=== PATIENT | male | born 1950 | race Caucasian/White ===

== ENCOUNTER 2017-06-16 14:14 | Emergency (ER) | payer MEDICARE, OTHER ==
[2017-06-16] MEDS ORDERED: Tetan/Diph/Pertus SYR(Tdap)* 0.5 ML SYR(BOOSTRIX) use SYR IM ONE (14:25)
[2017-06-16 14:26] VITALS: BP 135/76
--- NOTE | 2017-06-16 15:09 | UC ---
Laceration HPI - HPI Summary HPI Summary: Patient presents with laceration to the left distal ring finger, he cut it with the hedge clippers. He reports bleeding. last tetanus eight years ago. He reports tingling to the end of the finger, and slight tingling. Denies any difficulty with movemenet. - History Of Current Complaint Hx Obtained From: Patient Laceration Location: Finger Mechanism Of Injury: Sharp Trauma Onset/Duration: Lasting Hours Severity: Mild <Sylvia Duong - Last Filed: 06/16/17 16:20> <Yohana Bruner - Last Filed: 06/16/17 17:45> - History Of Current Complaint Chief Complaint: UCLaceration Stated Complaint: FINGER LACERATION Time Seen by Provider: 06/16/17 14:59 - Allergies/Home Medications Allergies/Adverse Reactions: Allergies Allergy/AdvReac Type Severity Reaction Status Date / Time No Known Allergies Allergy Verified 06/16/17 14:26 PMH/Surg Hx/FS Hx/Imm Hx Previously Healthy: Yes Cardiovascular History: Hypertension - Surgical History Surgical History: Yes Surgery Procedure, Year, and Place: bladder - Family History Known Family History: Positive: Hypertension - Social History Occupation: Retired Lives: Alone Alcohol Use: None Substance Use Type: None Smoking Status (MU): Current Some Day Smoker Type: Cigars <Sylvia Duong - Last Filed: 06/16/17 16:20> Review of Systems Constitutional: Negative Skin: Other - avulsion laceration of left ring finger. ENT: Negative Respiratory: Negative Cardiovascular: Negative Gastrointestinal: Negative Genitourinary: Negative Motor: Negative Neurovascular: Negative Musculoskeletal: Negative All Other Systems Reviewed And Are Negative: Yes <Sylvia Duong - Last Filed: 06/16/17 16:20> Physical Exam Triage Information Reviewed: Yes Appearance: Well-Appearing Vital Signs: Initial Vital Signs Temp 97.9 F 06/16/17 14:23 Pulse 60 06/16/17 14:23 Resp 18 06/16/17 14:23 BP 135/76 06/16/17 14:23 Pulse Ox 99 06/16/17 14:23 Vital Signs Reviewed: Yes Eye Exam: Normal ENT Exam: Normal Respiratory Exam: Normal Skin: Positive: Other - left ring finger avulsion laceration distal tip. <Sylvia Duong - Last Filed: 06/16/17 16:20> Vital Signs: Initial Vital Signs Temp 97.9 F 06/16/17 14:23 Pulse 60 06/16/17 14:23 Resp 18 06/16/17 14:23 BP 135/76 06/16/17 14:23 Pulse Ox 99 06/16/17 14:23 <Yohana Bruner - Last Filed: 06/16/17 17:45> Laceration Course/Dx - Course/Dx Course Of Treatment: Patient presents with an avulsion laceration to the left distal ring finger. Xrays were obtained and i read as distal phalynx fracture. Tetanus was updated. Augmentin rx. Bleeding controlled. Gelfoam dressing was applied, and wound care instruction were given. Patient was discharged home in stable condition.Patient was referred to orthopedist for follow up. - Differential Dx - Laceration/Wound Differental Diagnoses: Other - avulsion laceration Provider Diagnoses: avulsion laceration. tetanus vaccine <Sylvia Duong - Last Filed: 06/16/17 16:20> Discharge <Sylvia Duong - Last Filed: 06/16/17 16:20> <Yohana Bruner - Last Filed: 06/16/17 17:45> - Discharge Plan Condition: Stable Disposition: HOME Prescriptions: Amoxicillin/Clavulanate TAB* [Augmentin TAB 500 mg*] 500 mg PO BID #20 tab Patient Education Materials: Diphtheria/Tetanus Vaccine (By injection), Finger Fracture (ED), Finger Laceration (ED), Avulsion Fracture (ED) Referrals: Angelito Zamora MD [Primary Care Provider] - Martin Wells MD [Medical Doctor] - Images Hands: 1 - skin avulsion <Sylvia Duong - Last Filed: 06/16/17 16:20> Attestation Statement User Type: Provider - I was available for consult. This patient was seen by the ZOE. The patient was not presented to, seen by, or examined by me. -Ljj <Yohana Bruner - Last Filed: 06/16/17 17:45>
[2017-06-16] MEDS ORDERED: Lidocaine 1% INJ* 10 MG/ML 30 ML SDV INJ ONE ×4 (15:17→15:24)
[2017-06-16] MEDS ORDERED: Lidocaine 1% MPF* 2 ML VIAL ONE (15:22)
--- NOTE | 2017-06-16 16:13 | RAD ---
INDICATION: Laceration with hedge clippers, left ring finger. TECHNIQUE: 3 views of the left ring finger were obtained. FINDINGS: There is diffuse soft tissue swelling and a soft tissue defect involving the tip of the finger distal to the tuft of the distal phalanx. No fracture is seen. Joint spaces appear maintained. IMPRESSION: SOFT TISSUE INJURY, NO FRACTURE IS SEEN.
== END 2017-06-16 16:34 | disposition home or self-care (01) ==
LOC: UCEAST 14:14
DX: S61.215A Laceration without foreign body of left ring finger without damage to nail, initial encounter (principal); W45.8XXA Other foreign body or object entering through skin, initial encounter; I10 Essential (primary) hypertension; F17.210 Nicotine dependence, cigarettes, uncomplicated; Z23 Encounter for immunization
CPT/HCPCS: 12001; 73140; 90471; 90715; 96372; 99212; G0463; J2001

== ENCOUNTER 2019-06-23 06:58 | Observation (INO) | payer MEDICARE, OTHER ==
--- NOTE | 2019-06-13 13:02 | HP ---
HISTORY AND PHYSICAL: DATE OF SURGERY: 06/23/19 DATE OF OFFICE VISIT: 06/10/19 SURGEON: Dr. Ella Marc.* (DICTATED BY DASHA THAPA) PROCEDURE: Right total knee arthroplasty. CHIEF COMPLAINT: Right knee pain. HISTORY OF PRESENT ILLNESS: Mr. Villalobos is a 69-year-old male with 10 years of increasing severe right knee pain. He had an arthroscopy in 2009. Over the last 2 years, he has had 6/10 pain along the medial and lateral joint line of the knee. He has increased pain and can no longer take part in certain activities like skiing because of the pain. He has had increased pain with exercise and prolonged ambulation. In the past, he has tried injections, antiinflammatories, and activity modifications with minimal relief in pain. At this point, he has had failed conservative treatment and is a candidate for a right total knee arthroplasty. PAST MEDICAL HISTORY: Arthritis, previous alcohol addiction, enlarged prostate. PAST SURGICAL HISTORY: Right knee arthroscopy in 2009, tonsillectomy. MEDICATIONS: 1. Centrum 1 p.o. daily. 2. Fish oil 1 p.o. daily. 3. EpiPen 2 packs 0.3 mg/0.3 mL subcu p.r.n. ALLERGIES: No known drug allergies. BEE STINGS. FAMILY HISTORY: Positive for hypertension, stroke, and colon cancer. SOCIAL HISTORY: He is a retired executive. He currently smokes 3 to 4 cigars per week. He previously smoked cigarettes. He smoked 1-1/2 packs per day x20 years, he quit at age 40. He is a recovering alcoholic. He has not had an alcoholic beverage since 1975. He denies any recreational drug use. He is right-hand dominant. REVIEW OF SYSTEMS: General: Negative for fevers, chills, night sweats, unexplained weight loss or gain. No known anesthesia problems. HEENT: Negative for headache, lightheadedness, syncopal episodes, or visual changes. Integumentary: Negative for abrasions, lesions, or open wounds. Cardiothoracic : Negative for hypertension, chest pain, palpitations, or edema. Respiratory: Negative for shortness of breath with exertion, chronic cough, or wheezing. GI : Negative for nausea, vomiting, diarrhea, constipation, or GERD symptoms. : Positive for enlarged prostate. Negative for nocturia, urinary frequency, urgency, history of UTIs, or kidney problems. Musculoskeletal: Positive for right knee pain. Negative for chronic or intermittent back pain. No history of fractures. Neurologic: Negative for paresthesias, numbness, history of seizures, stroke, or poor balance. Negative for anxiety or depression. Endocrine: Negative for diabetes or thyroid issues. Hematologic: Negative for easy bruising, anemia, or bleeding disorders, history of DVT or PE. ID: Negative for history of MRSA infection, hep C, or HIV. PHYSICAL EXAMINATION GENERAL: Well-developed, well-nourished 69-year-old male, in no acute distress. Appropriate mood and affect. Appropriate dress and hygiene. VITAL SIGNS: Height 71 inches, weight 187 pounds, pulse 57, blood pressure 118/ 62, respirations 16, temperature 96.7, BMI 26.1. HEENT: Normocephalic and atraumatic. PERRLA. Extraocular movements intact. Throat is clear. NECK: Supple. No palpable lymph nodes. PULMONARY: Lungs are clear to auscultation bilaterally. No wheezes, rales, or rhonchi. CARDIO: Regular rate and rhythm. S1 and S2 normal. No murmurs, rubs, or gallops. No edema. ABDOMEN: Positive bowel sounds. Soft and nontender. NEUROLOGIC: A and O x3. Cranial nerves II through XII intact. Sensation is intact to light touch. MUSCULOSKELETAL: Right lower extremity skin is intact. No abrasions or open wounds. No soft tissue swelling, erythema, or bruising. There is no palpable masses or lymph nodes. He does have 12 degrees valgus deformity at the knee with a moderate effusion. Range of motion is 15 to 120 degrees of flexion at the knee with patellofemoral crepitus and pain. Distally, no edema or varicosity. No varus or valgus instability at the joint. He is able to dorsiflex and plantarflex his ankles. 5/5 strength. Sensation is intact to light touch in all nerve distributions. DP pulse 2+. DIAGNOSTIC STUDIES: Radiograph of his right knee show moderate to severe arthritis of the right knee with a valgus knee that has nearly [id number] contact in the lateral compartment. The lateral view also shows significant patellofemoral arthritis. IMPRESSION: Right knee arthritis. PLAN/RECOMMENDATIONS: The patient is scheduled to undergo a right total knee arthroplasty on 06/23/[address] Marc discussed the procedure as well as the risks and benefits with the patient; he elects to proceed. He will return to the office in 10 to 14 days for postop followup and suture removal. Prescription for Percocet will be prescribed for postoperative pain management upon discharge from the hospital. DASHA THAPA [id number]/[facility] #: [id number] PAIGE
[~2019-06-23 06:58] MED LIST: Buffered Lidocaine 1% SYRIN* 1 ML/SYRINGE INTRADERM ONE; Famotidine IV* 10 MG/ML 2 ML (20 mg) IV ONE; Lactated Ringers 1000 ML Bag* 1,000 ML IV SCH; Tranexamic Acid 1,000 MG in NS 0.9% 50 ML* (outpatient use) IV SCH
--- OUTSIDE RECORDS SUMMARY | 2019-06-23 07:02 | XMS REPORT | Continuity of Care Document ---
:1950 External Reference #:[id number] Author Name Ella Marc M.D. 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 Onset: 12/01/2013 Dyspnea Nacho Ho M.D. Onset: 12/01/2013 Palpitations Nacho Ho M.D. Onset: 12/01/2013 Electrocardiogram abnormal Nacho Ho M.D. Onset: 01/10/2014 Localized, primary osteoarthritis Ella Marc M.D. Onset: 11/26/2018 Supraventricular premature beats Nacho Ho M.D. Onset: 2013 Premature beats Nacho Ho M.D. Onset: 01/17/2014 Social History Type Date Description Comments Sex Unknown ETOH Use Has consumed alcohol in quite 30 years ago the past Tobacco Use Start: Unknown Patient is a current cigars couple times smoker, smokes some a week. days Recreational Drug Use Denies Drug Use Smoking Status Reviewed: 06/10/19 Patient is a current cigars couple times smoker, smokes some a week. days Exercise Type/Frequency Exercises regularly Allergies, Adverse Reactions, Alerts Active Allergies Reaction Severity Comments Date NKDA 11/30/2013 Bee Sting 11/30/2013 Medications Active Medications SIG Qnty Indications Ordering Provider Date Epipen 2-Ilia sc prn 2units Unknown 0.3mg/0.3ML Device Centrum 1 po qd 90tabs Unknown Tablets Fish Oil Unknown Medications Administered in Office Medication SIG Qnty Indications Ordering Provider Date Depomedrol 40MG Ella Marc M.D. 11/26/2018 Injection Immunizations Description No Information Available Vital Signs Date Vital Result Comment 06/10/2019 9:38am Height 71 inches 5'11" Weight 187.00 lb Heart Rate 57 /min BP Systolic 118 mmHg BP Diastolic 62 mmHg Respiratory Rate 16 /min Body Temperature 96.7 F Pain Level 0 BMI (Body Mass Index) 26.1 kg/m2 03/07/2019 1:57pm Height 71 inches 5'11" Weight 185.00 lb Heart Rate 59 /min Body Temperature 96.7 F O2 % BldC Oximetry 97 % BMI (Body Mass Index) 25.8 kg/m2 Results Description No Information Available Procedures Description No Information Available Medical Devices Description No Information Available Encounters Type Date Location Provider Dx Diagnosis Office Visit 03/07/2019 Orthopedic Ella Marc, M25.561 Pain in right 1:[facility] knee M25.461 Effusion, right knee M17.11 Unilateral primary osteoarthritis, right knee M21.061 Valgus deformity, not elsewhere classified, right knee Assessments Date Code Description Provider 06/10/2019 M17.11 Unilateral primary osteoarthritis, right knee Ella Marc M.D. 06/10/2019 M25.561 Pain in right knee Ella Marc M.D. 03/10/2019 M25.561 Pain in right knee Ella Marc M.D. 03/10/2019 M25.461 Effusion, right knee Ella Marc M.D. 03/10/2019 M17.11 Unilateral primary osteoarthritis, right knee Ella Marc M.D. 03/10/2019 M21.061 Valgus deformity, not elsewhere classified, Ella Marc M.D. right knee 03/07/2019 M25.561 Pain in right knee Ella Marc M.D. 03/07/2019 M25.461 Effusion, right knee Ella Marc M.D. 03/07/2019 M17.11 Unilateral primary osteoarthritis, right knee Ella Marc M.D. 03/07/2019 M21.061 Valgus deformity, not elsewhere classified, Ella Marc M.D. right knee Plan of Treatment Future Appointment(s):06/23/2019 10:15 am - [facility] - Ella Marc M.D.M17.11 Unilateral primary osteoarthritis, right kneeFollow up:10-14 days post-opM25.561 Pain in right kneeNew Xrays:Knee 3 Views RT, Ordered: 06/10/19 Functional Status Description No Information Available Mental Status Description No Information Available Referrals Description No Information Available
[2019-06-23] MEDS ORDERED: Famotidine IV* 10 MG/ML 2 ML (20 mg) ONE (07:52)
[2019-06-23] MEDS ORDERED: ceFAZolin 2 GM in NS PREMIX(*) 2 GM/100 ML BAG IVPB ONE (07:52)
[2019-06-23] MEDS ORDERED: fentaNYL* 50 MCG/ML 2 ML VIAL (100 MCG VIAL) ONE (08:08)
[2019-06-23] MEDS ORDERED: Midazolam* 1 MG/ML 5 ML VIAL (5 MG) ONE (08:08)
[2019-06-23] MEDS ORDERED: Buffered Lidocaine 1% SYRIN* 1 ML/SYRINGE INTRADERM ONE (08:23)
[2019-06-23] MEDS ORDERED: Lidocaine 1% MPF ** 5 ML VIAL ONE (08:38)
[2019-06-23] MEDS ORDERED: ROPIVACAINE 5 MG/ML 30 ML BTL (0.5%) ONE ×2 (08:38→09:32)
[2019-06-23] MEDS ORDERED: Bupivacaine 0.5%* 50 ML MDV VIAL ONE (09:11)
[2019-06-23] MEDS ORDERED: Bupivacaine 0.25% SDV PF* 10 ML VIAL INJ ONE (09:13)
[2019-06-23] MEDS ORDERED: KETAMINE HCL* 50 MG/ML 10 ML VIAL ONE (10:14)
[2019-06-23] MEDS ORDERED: Ketorolac INJ* 30 MG/ML 1 ML VIAL ONE (10:17)
[2019-06-23] MEDS ORDERED: Lidocaine 2% PF * 5 ML VIAL ONE (10:17)
[2019-06-23] MEDS ORDERED: Ondansetron INJ* 2 MG/ML VIAL ONE (10:17)
[2019-06-23] MEDS ORDERED: Propofol* 10 MG/ML 20 ML BTL ONE (10:17)
[2019-06-23] MEDS ORDERED: Glycopyrrolate IV* 0.2 MG/ML 1 ML VIAL ONE (10:17)
[2019-06-23] MEDS ORDERED: HYDROmorphone INJ1* 1 MG/ML SYRINGE IV PRN (10:48)
[2019-06-23] MEDS ORDERED: Acetaminophen IV 1GM/100ML * 1,000 MG/100 ML VIAL IVPB ONE (10:48)
[2019-06-23] MEDS ORDERED: oxyCODONE TAB* 5 MG TAB PO PRN (10:48)
[2019-06-23] MEDS ORDERED: DiMENhydriNATE IV* 50 MG/ML VIAL IV PUSH PRN (10:48)
[2019-06-23] MEDS ORDERED: Naloxone* 0.4 MG/ML 1 ML VIAL IV PRN (10:48)
[2019-06-23] MEDS ORDERED: Acetaminophen TAB* 325 MG PO PRN (12:35)
[2019-06-23] MEDS ORDERED: Ondansetron INJ* 2 MG/ML VIAL IV PRN (12:35)
[2019-06-23] MEDS ORDERED: Morphine INJ* 10 MG/ML 1 ML CARPUJECT IV PRN (12:35)
[2019-06-23] MEDS ORDERED: diPHENhydraMINE IV* 50 MG/ML 1 ml VIAL (BENADRYL) IV PRN (12:35)
[2019-06-23] MEDS ORDERED: diPHENhydraMINE PO* 25 MG PO PRN (12:35)
[2019-06-23] MEDS ORDERED: oxyCODONE/Acetamin 5/325 MG* TAB PO PRN (12:35)
[2019-06-23] MEDS ORDERED: Magnesium Hydroxide LIQ* 30 ML UDC PO PRN (12:35)
[2019-06-23] MEDS ORDERED: Ondansetron ODT TAB* 4 MG PO PRN (12:35)
[2019-06-23] MEDS: Lactated Ringers 1000 ML Bag* 1,000 ML IV SCH (13:45)
--- NOTE | 2019-06-23 16:22 | OP ---
Operative Report - Blank - Operative Report Date of Operation: 06/23/19 Note: GALEN STATON 1950 Date of Surgery: 06/23/19 Ella Marc MD Mexican Food Maker: Hermelinda LOU did help throughout the procedure with preparation of the knee, wound retraction, manipulation of the knee, and wound closure. Anesthesiologist: Pete Souza MD Anesthesia Type: Spinal Preoperative Diagnosis: Right severe degenerative osteoarthritis of the knee Postoperative Diagnosis: As above Procedure Performed: Right Total Knee Arthroplasty Tourniquet time: 48 minutes Complications: None Specimen: Bone and cartilage from the right knee joint sent to pathology. Hardware Used: Cemented Lynne [employer]hew total knee hardware was used - For the femur a size 7 right oxinium legion posterior stabilized femoral component, for the tibia a size 6 right simran II tibial baseplate, for the insert a size 9 mm 5-6 posterior stabilized articular polyethylene insert, and for the patella a size 35 3-peg all poly patella. Brief History/Indication: GALEN STATON was known in clinic and had a history of severe right knee pain and swelling. He failed conservative treatment with anti-inflammatories, pain pills, intra-articular injections and physical therapy. He elected to undergo right total knee arthroplasty due to continued pain and decreased quality of life. Radiographs showed severe end stage osteoarthritis of the knee with bone on bone contact. Informed consent was obtained from the patient. He understood the risks of surgery included but were not limited to: bleeding, infection, damage to nearby structures, intraoperative fracture, nerve palsy, failure of the hardware, early loosening, knee stiffness or loss of motion, anesthesia complications, stroke, heart attack , blood clot and . He wished to proceed. Intra-Operative Findings: Intraoperatively the patient was noted to have severe loss of cartilage in all 3 compartments of the knee. Description of the Procedure: GALEN STATON was identified in the preanesthesia unit. His right knee was marked as the correct operative side. Informed consent was signed and placed in the chart. The patient was taken to the operating room and placed under anesthesia without complication. A lozano catheter was placed. A tourniquet was placed on the right thigh. The right lower extremity was prepped and draped in the usual sterile fashion. Preoperative time-out was made to correctly identify the patient, side and site. Appropriate intraoperative antibiotics were given within one hour of incision. Tourniquet was inflated. A midline incision was made and carried sharply down to the extensor mechanism. A new 10 blade was used to make a standard medial parapatellar arthrotomy. The patella was subluxed laterally. Electrocautery was used to dissect soft tissue off the superomedial tibia to the midsagittal plane. The knee was flexed up. The anterior horn of the lateral meniscus and the ACL were sharply incised. A drill was used to enter the distal femur. The intramedullary distal femoral cutting guide was pinned on the distal femur. The oscillating saw was used to make the distal femoral cut. The external rotation guide was pinned on the distal femur and the distal femur was sized to a size 7. The size 7 multi-cutting jig was pinned on the distal femur. The oscillating saw was used to make the appropriate 4 chamfer cuts. Next the PCL was completely released. The extramedullary tibial cutting guide was pinned on the proximal tibia and the oscillating saw was used to make the proximal tibial cut perpendicular to the mechanical axis of the tibia. The bone was carefully removed. The knee was brought out into full extension. The spacer block was placed and had excellent fit with the knee in full extension. The medial and lateral ligaments were well balanced. The flexion and extension gaps were well balanced. The knee was flexed up. Lamina school manager was placed both medially and laterally. Any remaining meniscus was removed with electrocautery. Curved osteotome was used to remove any posterior osteophytes. The tibial tray and drop tatyana were placed and confirmed a satisfactory tibial cut. The size 7 right femoral trial was impacted onto the distal femur. This trial had excellent fit and stability. The box for the posterior stabilized implant was prepared using a box cut osteotome and a reamer. Next a tibial tray trial and 9 mm insert trial was placed. The knee was taken through a range of motion and had full extension to 130 degrees of flexion. Patellofemoral tracking was satisfactory. The patella was inverted and sized to a size 35. Three peg holes were drilled through the size 35 drill guide. The trial patella was placed and the knee was taken through a range of motion. There was satisfactory patellofemoral tracking. All trials were removed. The tibia was subluxed anteriorly and sized to a size 6. The proximal tibial was prepared with a size 6 keel punch. All bony cut surfaces were irrigated with sterile saline and dried. Final implants were cemented into place starting with the tibia, followed by the femur, and last the patella. A 9 mm insert trial was placed and the knee was brought into full extension. Tourniquet was turned down and the knee was copiously irrigated with sterile saline. Electrocautery was used to obtain meticulous hemostasis. Once the cement had fully cured, the insert trial was removed. Any excess cement was removed from around the hardware and capsule. Final insert chosen was a 9 mm posterior stabilized Simran II articular insert size 5-6. Stability of the insert was checked and noted to be stable. The extensor mechanism was closed using number 1 vicryls. The rest of the incision was closed in a layered fashion using 0 and 2-0 vicryls. The skin was closed using 3-0 nylon suture. Sterile xeroform, 4x4s and webril were used to cover the incision. Deepak wrap and cold pack were used to cover the dressings. The patients anesthesia was reversed without difficulty. He was taken to the PACU in stable condition. Intended weight-bearing will be as tolerated.
[2019-06-23] MEDS: oxyCODONE/Acetamin 5/325 MG* TAB PO PRN ×2 (16:23→21:15)
--- NOTE | 2019-06-23 16:38 | PN ---
Progress Note - Progress Note Date of Service: 06/23/19 SOAP: Subjective: [Pt seen sitting in chair. States that he is doing very well. Pain is well controlled. Denies any numbness or tingling, no other joint pain. ] Objective: [+df/pf. NVI ] Vital Signs Temp 97.0 F 06/23/19 15:50 Pulse 49 06/23/19 15:50 Resp 18 06/23/19 16:23 BP 128/75 06/23/19 15:50 Pulse Ox 100 06/23/19 15:50 Intake & Output 06/22/19 06/23/19 06/23/19 18:59 06:59 18:59 Intake Total 2700 Output Total 1150 Balance 1550 Weight 189 lb 3.2 oz Intake: IV Fluids 2200 LR 2100 cefazolin 2g 100 Oral 500 Output: Georges 950 Estimated Blood Loss 200 Other: # Bowel Movements 0 Assessment: [POD 0 RTKA] Plan: [Continue with abx Continue with pain medication Continue with PT ]
[2019-06-23] MEDS: ceFAZolin 1 GM ADVAN(*) 1 GM in NS 0.9% 50 ML* 50 ML IVPB SCH (17:55)
[2019-06-23] MEDS: Magnesium Hydroxide LIQ* 30 ML UDC PO SCH (21:15)
[2019-06-23] MEDS: Docusate CAP* 100 MG PO SCH (21:15)
[2019-06-24] MEDS: Cyclobenzaprine TAB* 10 MG PO PRN ×2 (00:02→10:51)
[2019-06-24] MEDS: Lactated Ringers 1000 ML Bag* 1,000 ML IV SCH (00:04)
[2019-06-24] MEDS: oxyCODONE/Acetamin 5/325 MG* TAB PO PRN ×3 (01:08→12:25)
[2019-06-24] MEDS: ceFAZolin 1 GM ADVAN(*) 1 GM in NS 0.9% 50 ML* 50 ML IVPB SCH ×2 (01:08→10:17)
[2019-06-24 06:04] LABS: Hematocrit 37 % (42-52); Hemoglobin 12.5 g/dL (14.0-18.0); Mean Platelet Volume 7.5 fL (7.4-10.4); Platelet Count 203 10^3/uL (150-450)
[2019-06-24 06:26] LABS: BUN/Creatinine Ratio 16.5 (8-20); Calcium 8.6 mg/dL (8.6-10.3); EGFR African American 81.2 (>60); EGFR Non-African American 67.1 (>60); Potassium 4.6 mmol/L (3.5-5.0)
[2019-06-24] MEDS: Docusate CAP* 100 MG PO SCH (07:27)
[2019-06-24] MEDS: Magnesium Hydroxide LIQ* 30 ML UDC PO SCH (07:29)
[2019-06-24] MEDS ORDERED: Vitamin THERAPEUTIC TAB PO SCH (09:00)
[2019-06-24] MEDS ORDERED: Apixaban* 2.5 MG TAB PO SCH (09:00)
[2019-06-24] MEDS: oxyCODONE TAB* 5 MG TAB PO PRN ×2 (09:15→14:55)
--- NOTE | 2019-06-24 12:10 | PN ---
Progress Note - Progress Note Date of Service: 06/24/19 SOAP: Subjective: Pt seen sitting up comfortably in chair. No complaints today. Pain well controlled. Denies CP, SOB, F/C. Vital Signs: Temp Pulse Resp BP Pulse Ox 98.0 F 57 18 144/74 100 06/24/19 07:39 06/24/19 07:39 06/24/19 10:51 06/24/19 07:39 06/24/19 07:39 Laboratory Last Values Hgb 12.5 g/dL (14.0-18.0) L 06/24/19 05:43 Hct 37 % (42-52) L 06/24/19 05:43 Plt Count 203 10^3/uL (150-450) 06/24/19 05:43 MPV 7.5 fL (7.4-10.4) 06/24/19 05:43 Sodium 138 mmol/L (135-145) 06/24/19 05:43 Potassium 4.6 mmol/L (3.5-5.0) 06/24/19 05:43 Chloride 105 mmol/L (101-111) 06/24/19 05:43 Carbon Dioxide 31 mmol/L (22-32) 06/24/19 05:43 Anion Gap 2 mmol/L (2-11) 06/24/19 05:43 BUN 18 mg/dL (6-24) 06/24/19 05:43 Creatinine 1.09 mg/dL (0.67-1.17) 06/24/19 05:43 Est GFR ( Amer) 81.2 (>60) 06/24/19 05:43 Est GFR (Non-Af Amer) 67.1 (>60) 06/24/19 05:43 BUN/Creatinine Ratio 16.5 (8-20) 06/24/19 05:43 Glucose 122 mg/dL (70-100) H 06/24/19 05:43 Calcium 8.6 mg/dL (8.6-10.3) 06/24/19 05:43 Objective: A&O x3, NAD Dressing C/D/I, Calves soft and nontender, No edema, NVI distally Assessment: 69 yo male s/p right TKA POD #1 Plan: OOB, PT/OT WBAT Pain control DVT prophylaxis - Eliquis 2.5mg bid D/C Home today
[2019-06-24 12:23] VITALS: BP 146/81
--- NOTE | 2019-06-24 12:40 | DS ---
Orthopedic Discharge Summary - Discharge Summary Date of Admission:06/23/19 Date of Discharge: 06/24/19 Date of Surgery: 06/23/19 Attending Orthopedic Provider: Dr. Ella Marc Pre-operative Diagnosis: Right knee osteoarthritis Operative Procedure: Right Total Knee Arthroplasty Disposition of Patient: Discharge to Home Condition of Patient: Stable History: GALEN STATON is a 69 year old M with years of increasingly severe right knee pain. Patient has failed conservative management and has elected to undergo a Right total knee replacement Hospital Course: GALEN was admitted to [facility] 06/23/19. Patient underwent a right total knee arthroplasty without complication followed by a brief recovery in PACU and transfer to the Short Stay Surgical Unit in stable condition. Our physical therapy and occupational therapy also participated in this patients care. Post-op day 1: patient was alert and in no acute distress. Dressing was clean, dry and intact. Operative extremity dorsiflexion and plantarflexion intact, sensation intact to light touch distally , DP2+. Patient was deemed to be medically and orthopedically stable for discharge. Physical therapy goals were met. Home Medications Medication Instructions Recorded Confirmed Type Multivitamins/Minerals TAB* 1 tab PO DAILY 11/10/18 06/10/19 History [Theragran/minerals TAB*] [place]-3 Fatty Acids/Fish Oil [Fish 1,000 mg PO DAILY 11/10/18 06/10/19 History Oil 1,000 mg Capsule] Apixaban* [Eliquis*] 2.5 mg PO BID tab 06/24/19 Rx Docusate CAP* [Colace Cap*] 100 mg PO BID cap 06/24/19 Rx oxyCODONE/Acetamin 5/325 MG* 1 tab PO Q4H PRN tab 06/24/19 Rx [Percocet 5/325 TAB*] oxyCODONE/Acetamin 5/325 MG* 2 tab PO Q4H PRN tab 06/24/19 Rx [Percocet 5/325 TAB*] Discharge Instructions following Orthopedic Surgery: Activity: * Weight Bearing as tolerated * Continue physical therapy and occupational therapy exercises as shown Wound care: * OK to shower on post-op day 3, no bathing, swimming, or submerging wound. * Use gentle soap, pat dry. Cover with gauze, JUAN wrap or tape. * Visiting home nurse to do wound checks. Call Orthopedic office for: * Increased drainage * Redness * Increased pain * Fever Go to ER with shortness of breath or chest pain. Diet: * Regular diet * Increase fluids and fiber to prevent constipation. * Continue to use stool softeners, call office if no bowel motion within 48 hours. Medications See Home Medication List in your packet for medications that you should take after discharge. DVT Prophylaxis: Eliquis Dosin.5 mg, 1 tab every 12 hours x 30 days Pain Control: Percocet Dosin/325 mg 1-2 tabs by mouth every 4-6 hours as needed for pain. Maximum of 10 tabs per day. Celebrex Dosin mg twice a day Please note that Percocet contains Tylenol (acetaminophen). Maximum daily dose of Tylenol is 4000 mg from all sources. Antibiotics are required prior to any dental work. FOLLOW UP: Follow up with [Monico] Within 10-14 days, call for appointment Please call our office with any questions or concerns ([phone])
[2019-06-25] MEDS ORDERED: Bisacodyl SUPP* 10 MG SUPP PR PRN (12:35)
== END 2019-06-24 15:32 | disposition home or self-care (01) ==
LOC: AA 06:58 → INTOOBSV 06:58 → SSU 12:35
PROVIDERS: ADMIT Orthopaedic Surgery Adult Reconstructive Orthopaedic Surgery; ATTEND Orthopaedic Surgery Adult Reconstructive Orthopaedic Surgery
DX: M17.11 Unilateral primary osteoarthritis, right knee (principal); M25.561 Pain in right knee; Z79.899 Other long term (current) drug therapy; Z87.891 Personal history of nicotine dependence
CPT/HCPCS: 36415; 80048; 85014; 85018; 85049; 88305; 88311; A9270-GY; C1776; G0378; G8978-GP-CK; G8979-GP-CI; J0690; J1885; J2250; J2405; J2704; J2795; J3010; J3490